=== PATIENT | male | born 1985 | race Two or more races ===

== ENCOUNTER 2020-10-07 16:04 | Emergency (ER) | payer OTHER, SELFPAY ==
[2020-10-07 16:07] VITALS: BP 140/79; PULSE 106; RESP 18; TEMP 36.8; O2SAT 98; BMI 24.4
[2020-10-07 17:06] LABS: Basophils Percent Auto 0.5 % (0-2); Eosinophils Percent Auto 0.5 % (0-4); Hematocrit 44.3 % (42-52); Hemoglobin 15.2 g/dl (14.0-18.0); Imm Gran Abs Auto 0.02 X10*3/uL (0.00-0.03); Imm Gran Pct Auto 0.3 % (0.0-0.4); Lymphocytes Absolute Auto 0.6 X10*3/uL (1.2-4.9); Lymphocytes Percent Auto 9.4 % (20-40); MANUAL DIFF FLAG SCAN; Mean Corpuscular HGB Conc 34.3 g/dl (31.0-36.0); Mean Corpuscular Hemoglobin 29.3 pg (27.0-33.0); Mean Corpuscular Volume 85.4 fL (80-98); Mean Platelet Volume 9.4 fL (9.4-12.4); Monocytes Absolute Auto 0.7 X10*3/uL (0.1-1.2); Monocytes Percent Auto 12.1 % (2-11); Neutrophils Absolute Auto 4.7 X10*3/uL (2.0-8.3); Neutrophils Percent Auto 77.2 % (45-73); Platelet Count 156 X10*3/uL (160-400); Red Blood Count 5.19 X10*6/uL (4.60-5.80); Red Cell Distribution Width 11.7 % (11.0-16.0); SCAN SMEAR FLAG 1
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
[2020-10-07 17:31] LABS: SLIDE REVIEW VERIFIED
[2020-10-07 17:35] LABS: Alanine Aminotransferase 79 U/L (0-40); Albumin Level 4.6 g/dL (3.5-5.0); Alkaline Phosphatase 81 U/L (39-117); Anion Gap 13 (12-20); Aspartate Amino Transferase 51 U/L (5-37); Bilirubin Direct 0.2 mg/dL (0.0-0.5); Bilirubin Total 0.5 mg/dL (0.0-1.0); Blood Urea Nitrogen 17 mg/dL (9-16); Calcium 9.4 mg/dL (8.4-10.2); Carbon Dioxide 28 mmol/L (22-29); Chloride 102 mmol/L (96-108); Estimated Glomerular Filt Rate > 60; Glucose Random 121 mg/dL (60-115); Lipase 32 U/L (8-78); Potassium 3.6 mmol/L (3.3-5.1); Sodium 139 mmol/L (135-145); Total Protein 7.4 g/dL (6.5-8.0)
[2020-10-07] MEDS: Post Exposure Medication Kit 1 KIT PO (17:42)
[2020-10-08 04:53] LABS: HBc Num1 0.04 S/CO (0.00-0.79); HIV AB/AG Nonreactive (Nonreactive); HIV Num 1 0.05 S/CO (0.00-0.99); Hepatitis B Core Antibody Nonreactive (Nonreactive)
[2020-10-08 05:03] LABS: HBsAGNum1 0.16 S/CO (0.00-0.99); Hepatitis B Surface Antigen Negative (Negative); ~HepC Num1 0.64 S/CO (0.00-0.79); ~Hepatitis B Surface Antibody REACTIVE (Nonreactive); ~Hepatitis C Antibody Nonreactive (Nonreactive)
== END 2020-10-07 18:00 | disposition home or self-care (01) ==
PROVIDERS: Physician Assistant; Emergency Provider Emergency Medicine
DX: S61.031A Puncture wound without foreign body of right thumb without damage to nail, initial encounter (principal); M79.641 Pain in right hand; Y28.9XXA Contact with unspecified sharp object, undetermined intent, initial encounter; Y93.9 Activity, unspecified; Y92.239 Unspecified place in hospital as the place of occurrence of the external cause; Y99.0 Civilian activity done for income or pay; Z20.828 Contact with and (suspected) exposure to other viral communicable diseases; Z20.822 Contact with and (suspected) exposure to COVID-19; Z86.19 Personal history of other infectious and parasitic diseases
CPT/HCPCS: 36415; 80048; 80076; 83690; 85025; 86704; 86706; 86803; 87340; 87389; 99284

== ENCOUNTER → 2020-10-08 09:33 | Outpatient (BNVA) | payer OTHER, SELFPAY | PROVIDERS: Visit Provider Physician Assistant Medical | DX: Z77.21 Contact with and (suspected) exposure to potentially hazardous body fluids (principal) | CPT/HCPCS: 99202 ==

== ENCOUNTER 2021-02-17 23:29 | Emergency (ER) | payer OTHER, SELFPAY ==
[2021-02-17 23:33] VITALS: BP 121/79; PULSE 75; RESP 16; O2SAT 99; BMI 25.8
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
== END 2021-02-18 00:11 | disposition home or self-care (01) ==
LOC: HO.ED 02-18 00:05
PROVIDERS: Emergency Provider Internal Medicine
DX: S50.12XA Contusion of left forearm, initial encounter (principal); S50.11XA Contusion of right forearm, initial encounter; Y35.91XA Legal intervention, means unspecified, law enforcement official injured, initial encounter; N50.812 Left testicular pain; Y93.89 Activity, other specified; Y92.410 Unspecified street and highway as the place of occurrence of the external cause; Y99.0 Civilian activity done for income or pay
CPT/HCPCS: 99283

== ENCOUNTER 2021-05-13 01:25 | Emergency (ER) | payer OTHER, SELFPAY ==
--- NOTE | ~2021-05-13 | XR_ITS ---
EXAMINATION: XR FINGER, LEFT CLINICAL INFORMATION: Foreign body, left thumb COMPARISON: None TECHNIQUE: Three views of the left thumb. FINDINGS: The bones and soft tissues are normal. No fracture. Alignment is anatomic. Joint spaces are maintained. XR/XR finger LT min 2V IMPRESSION: No radiopaque foreign bodies are identified. Normal finger radiographs.
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
[2021-05-13 01:51] VITALS: BP 142/77; PULSE 71; RESP 16; TEMP 36.6; O2SAT 98; BMI 25.1
== END 2021-05-13 02:29 | disposition home or self-care (01) ==
PROVIDERS: Emergency Provider Emergency Medicine
DX: S61.032A Puncture wound without foreign body of left thumb without damage to nail, initial encounter (principal); Z77.21 Contact with and (suspected) exposure to potentially hazardous body fluids; W25.XXXA Contact with sharp glass, initial encounter; Y93.9 Activity, unspecified; Y92.410 Unspecified street and highway as the place of occurrence of the external cause; Y99.0 Civilian activity done for income or pay
CPT/HCPCS: 73140; 99283

== ENCOUNTER → 2021-07-26 08:55 | Outpatient (BNVA) | payer OTHER, SELFPAY | PROVIDERS: Visit Provider Internal Medicine | DX: M20.012 Mallet finger of left finger(s) (principal); M23.92 Unspecified internal derangement of left knee | CPT/HCPCS: 73130; 73564; 99203 ==

== ENCOUNTER → 2021-08-09 10:57 | Outpatient (BNVA) | payer OTHER, SELFPAY | PROVIDERS: Visit Provider Internal Medicine | DX: M20.012 Mallet finger of left finger(s) (principal) | CPT/HCPCS: 99213 ==

== ENCOUNTER 2021-08-25 08:44 | Outpatient (REF) | payer OTHER, SELFPAY ==
--- NOTE | ~2021-08-25 | XR_ITS ---
EXAMINATION: XR HAND, LEFT CLINICAL INFORMATION: Pain in left hand COMPARISON: None TECHNIQUE: PA, lateral, and oblique views of the left hand. FINDINGS: The bones and soft tissues are normal. No fracture. Alignment is anatomic. Joint spaces are maintained. No erosions or soft tissue calcifications. XR/XR hand LT min 3V IMPRESSION: Unremarkable left hand.
== END 2021-08-25 08:45 | disposition home or self-care (01) ==
LOC: HO.HOSX 08:44
PROVIDERS: Visit Provider Orthopaedic Surgery
DX: M79.642 Pain in left hand (principal); M20.012 Mallet finger of left finger(s)
CPT/HCPCS: 73130; 99202

== ENCOUNTER 2021-09-03 09:30 | Outpatient (RCR) | payer OTHER, SELFPAY ==
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
--- NOTE | 2021-09-03 13:35 | MHC.OT.DC ---
[address] [phone] F: [phone] Occupational Therapy Discharge Note Provider: Hayder Baker Diagnosis: LT 5TH FINGER MALLET DEFORMITY Date of Surgery: Date of Evaluation: 08/02/21 Date of Discharge: 09/03/21 Treatments to Date: 5 Cancellations to Date: 0 No Shows to Date: 0 Discharge Status: Independent with HEP Discharge Summary: This pt is now 4 wks, 4 days left DIP immobilization for a mallet injury . DIP jt is resting in neutral out of his splint however he will require continued protection for 2 or more weeks and home and probably longer at work prior to weaning out of the splint. New low profile splints were fabricated per MD request and he is indep in donning and doffing . 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 Electronically Signed By: Rocío Hughes OT CHT CLT Reviewed/agree with student documentation: N/A Therapist: Please Sign and return to therapist, thank you for your referral.
== END 2021-09-03 13:36 | disposition home or self-care (01) ==
LOC: HO.OT 09:30
PROVIDERS: Visit Provider Internal Medicine
DX: M20.012 Mallet finger of left finger(s) (principal)
CPT/HCPCS: 29130; 97110; 97166; 97760

== ENCOUNTER → 2021-09-06 10:37 | Outpatient (BNVA) | payer OTHER, SELFPAY | PROVIDERS: Visit Provider Internal Medicine ==

== ENCOUNTER → 2021-09-14 12:44 | Outpatient (BNVA) | payer OTHER, SELFPAY | PROVIDERS: Visit Provider Orthopaedic Surgery | DX: M20.012 Mallet finger of left finger(s) (principal) | CPT/HCPCS: 99212 ==

== ENCOUNTER → 2022-10-11 11:09 | Outpatient (BNVA) | payer OTHER, SELFPAY | PROVIDERS: Visit Provider Internal Medicine | DX: S63.501A Unspecified sprain of right wrist, initial encounter (principal); Y35.891A Legal intervention involving other specified means, law enforcement official injured, initial encounter | CPT/HCPCS: 73090; 73110; 99203 ==

== ENCOUNTER → 2022-10-14 09:06 | Outpatient (BNVA) | payer OTHER, SELFPAY | PROVIDERS: Visit Provider Physician Assistant Medical | DX: S63.501A Unspecified sprain of right wrist, initial encounter (principal); Y35.891A Legal intervention involving other specified means, law enforcement official injured, initial encounter | CPT/HCPCS: 99213 ==

== ENCOUNTER → 2022-10-25 13:55 | Outpatient (BNVA) | payer OTHER, SELFPAY | PROVIDERS: Visit Provider Physician Assistant Medical | DX: S63.501A Unspecified sprain of right wrist, initial encounter (principal); Y35.891A Legal intervention involving other specified means, law enforcement official injured, initial encounter | CPT/HCPCS: 99213 ==

== ENCOUNTER → 2022-11-08 11:01 | Outpatient (BNVA) | payer OTHER, SELFPAY | PROVIDERS: Visit Provider Physician Assistant Medical | DX: S63.591D Other specified sprain of right wrist, subsequent encounter (principal); Y35.891D Legal intervention involving other specified means, law enforcement official injured, subsequent encounter | CPT/HCPCS: 99213 ==

== ENCOUNTER 2022-12-06 11:00 | Outpatient (RCR) | payer OTHER, SELFPAY ==
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
== END 2023-01-13 15:13 | disposition home or self-care (01) ==
LOC: HO.OT 11:00
PROVIDERS: Visit Provider Physician Assistant Medical
DX: S63.501D Unspecified sprain of right wrist, subsequent encounter (principal)
CPT/HCPCS: 97033; 97035; 97110; 97165

== ENCOUNTER 2023-11-15 01:42 | Emergency (ER) | payer OTHER, SELFPAY ==
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
[2023-11-15 01:44] VITALS: BP 117/71; PULSE 95; RESP 16; TEMP 36.6; O2SAT 97; BMI 31.9
[2023-11-15 03:39] VITALS: BP 117/71; PULSE 95; RESP 16; TEMP 36.6; O2SAT 97
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
== END 2023-11-15 03:41 | disposition home or self-care (01) ==
PROVIDERS: Emergency Provider Internal Medicine
DX: S50.01XA Contusion of right elbow, initial encounter (principal); M70.21 Olecranon bursitis, right elbow; X58.XXXA Exposure to other specified factors, initial encounter; Y93.9 Activity, unspecified; Y92.9 Unspecified place or not applicable; Y99.8 Other external cause status
CPT/HCPCS: 73080; 99282; 99283

== ENCOUNTER → 2023-11-16 08:23 | Outpatient (BNVA) | payer OTHER, SELFPAY | PROVIDERS: Visit Provider Physician Assistant | DX: S50.311A Abrasion of right elbow, initial encounter (principal); Y35.891A Legal intervention involving other specified means, law enforcement official injured, initial encounter; M70.21 Olecranon bursitis, right elbow | CPT/HCPCS: 99204 ==

== ENCOUNTER → 2023-11-20 13:19 | Outpatient (BNVA) | payer OTHER, SELFPAY | PROVIDERS: Visit Provider Physician Assistant Medical | DX: S50.01XA Contusion of right elbow, initial encounter (principal); Y35.891A Legal intervention involving other specified means, law enforcement official injured, initial encounter; M70.21 Olecranon bursitis, right elbow | CPT/HCPCS: 99213 ==

== ENCOUNTER → 2023-12-07 09:02 | Outpatient (BNVA) | payer OTHER, SELFPAY | PROVIDERS: Visit Provider Physician Assistant Medical | DX: S50.01XD Contusion of right elbow, subsequent encounter (principal); M70.31 Other bursitis of elbow, right elbow | CPT/HCPCS: 99213 ==

== ENCOUNTER 2024-08-19 12:18 | Emergency (ER) | payer OTHER, SELFPAY ==
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
[2024-08-19 12:35] VITALS: BP 113/77; PULSE 70; RESP 18; TEMP 36.3; O2SAT 96; BMI 29.4
[2024-08-19] MEDS: Ibuprofen 600 MG TABLET PO (12:58)
[2024-08-19 13:33] VITALS: BP 113/77; PULSE 70; RESP 18; TEMP 36.3; O2SAT 96
== END 2024-08-19 13:33 | disposition home or self-care (01) ==
PROVIDERS: Emergency Provider Emergency Medicine
DX: S06.0XAA Concussion with loss of consciousness status unknown, initial encounter (principal); V43.52XA Car driver injured in collision with other type car in traffic accident, initial encounter; R51.9 Headache, unspecified; Y92.414 Local residential or business street as the place of occurrence of the external cause; Y93.9 Activity, unspecified; Y99.0 Civilian activity done for income or pay
CPT/HCPCS: 70450; 72125; 99283; 99284

== ENCOUNTER → 2024-08-20 08:06 | Outpatient (BNVA) | payer OTHER, SELFPAY | PROVIDERS: Visit Provider Physician Assistant Medical | DX: S00.93XA Contusion of unspecified part of head, initial encounter (principal); V89.0XXA Person injured in unspecified motor-vehicle accident, nontraffic, initial encounter | CPT/HCPCS: 99203 ==

== ENCOUNTER → 2024-11-29 13:48 | Outpatient (BNVA) | payer OTHER, SELFPAY | PROVIDERS: Visit Provider Physician Assistant | DX: S93.401A Sprain of unspecified ligament of right ankle, initial encounter (principal); X58.XXXA Exposure to other specified factors, initial encounter | CPT/HCPCS: 73610; 99204 ==

== ENCOUNTER → 2024-12-04 13:26 | Outpatient (BNVA) | payer OTHER, SELFPAY | PROVIDERS: Visit Provider Physician Assistant | DX: S93.401A Sprain of unspecified ligament of right ankle, initial encounter (principal); X58.XXXA Exposure to other specified factors, initial encounter | CPT/HCPCS: 99214 ==

== ENCOUNTER → 2024-12-12 13:28 | Outpatient (BNVA) | payer OTHER, SELFPAY | PROVIDERS: Visit Provider Physician Assistant | DX: S93.431A Sprain of tibiofibular ligament of right ankle, initial encounter (principal); X58.XXXA Exposure to other specified factors, initial encounter | CPT/HCPCS: 99213 ==

== ENCOUNTER 2024-12-15 19:28 | Outpatient (REF) | payer OTHER, SELFPAY ==
--- NOTE | ~2024-12-15 | MR_ITS ---
CLINICAL HISTORY: SYNDENOSIS INSTABILITY MR right ankle Comparison: CR/SR - XR ANKLE RT MIN 3V - 11/29/24 14:28 EDT Findings: There is a mild amount of edema in the distal tibia at the posterior lateral aspect. Trace amount of edema in the talus adjacent to the subtalar joint. Intact articulations. No osteophytes. Moderate-sized subtalar joint effusion. Small amount of tibiotalar joint fluid. Normal talar dome and subtalar joint cartilage. Achilles, extensor and flexor tendons are intact. Deltoid ligament is intact. There is a tear of the calcaneofibular, anterior talofibular and anterior tibiofibular ligaments. There is increased signal in the posterior talofibular and posterior tibiofibular ligaments. Plantar fascia is intact. Musculature is normal in signal and bulk. Impression: Mild amount of edema in the distal tibia at the posterolateral aspect and trace amount of edema within the talus could be secondary to trauma or altered biomechanics. Tibiotalar and subtalar joint effusions. Tear of the calcaneofibular, anterior talofibular and anterior tibiofibular ligaments. Increased signal in the posterior talofibular and posterior tibiofibular ligaments may indicate partial tear. This document has been electronically signed by: Jocelyn Terrell MD on 12/16/2024 23:01:07
== END 2024-12-15 19:29 | disposition home or self-care (01) ==
LOC: HO.MRI 19:28
PROVIDERS: Visit Provider Internal Medicine
DX: M25.371 Other instability, right ankle (principal)
CPT/HCPCS: 73721

== ENCOUNTER → 2024-12-15 19:40 | Outpatient (BNV) | payer OTHER, SELFPAY | PROVIDERS: Visit Provider Radiology Diagnostic Radiology | DX: M25.471 Effusion, right ankle (principal); S93.491A Sprain of other ligament of right ankle, initial encounter | CPT/HCPCS: 73721 ==